=== PATIENT | female | born 1975 | race Caucasian/White ===

== ENCOUNTER 2018-09-24 13:48 | Emergency (ER) | payer BC, OTHER ==
[~2018-09-24] VITALS: Ht 170.2 cm; Wt 86.2 kg
[~2018-09-24 13:48] MED LIST: ATIVAN0.5 M1 PO; CEFPODOXIME PR200 M1 PO; LEXAPRO 10 MG T10 M1 PO; LISINOPRIL10 MG PO; LUNESTA2 MG PO; PERCOCET 5-3251 EACH PO; VYVANSE50 MG PO
[2018-09-24] MEDS ORDERED: EFFIENT10 MG PO (13:54)
[2018-09-24] MEDS ORDERED: EFFEXOR XR75 MG PO (13:54)
[2018-09-24] MEDS ORDERED: VYVANSE70 MG PO (13:58)
[2018-09-24] MEDS ORDERED: PROPRANOLOL 1010 MG PO (13:59)
[2018-09-24] MEDS ORDERED: NORCO 5-325 TA1 EAC1 PO (15:03)
[2018-09-24] MEDS ORDERED: NAPROSYN500 MG PO (15:03)
[2018-09-24 15:18] VITALS: BP 126/85
== END 2018-09-24 15:19 | disposition home or self-care (01) ==
LOC: M.ERS 13:48
DX: S22.42XA Multiple fractures of ribs, left side, initial encounter for closed fracture (principal); I10 Essential (primary) hypertension; F32.9 Major depressive disorder, single episode, unspecified; Z90.49 Acquired absence of other specified parts of digestive tract; W00.0XXA Fall on same level due to ice and snow, initial encounter; Y93.89 Activity, other specified; Y92.89 Other specified places as the place of occurrence of the external cause; Y99.8 Other external cause status

== ENCOUNTER 2021-03-26 06:02 | Emergency (ER) | payer OTHER ==
[~2021-03-26] VITALS: Ht 167.6 cm; Wt 88.5 kg
[~2021-03-26 06:02] MED LIST changes: +EFFEXOR XR75 MG PO; +EFFIENT10 MG PO; +NAPROSYN500 MG PO; +NORCO 5-325 TA1 EAC1 PO; +PROPRANOLOL 1010 MG PO; +VYVANSE70 MG PO
[2021-03-26 06:36] LABS: ABSOLUTE BASOPHILS 0.1 thou/uL (0.0-0.2); ABSOLUTE EOSINOPHILS 0.1 thou/uL (0.0-0.7); ABSOLUTE LYMPHOCYTES 3.6 thou/uL (0.8-5.3); ABSOLUTE MONOCYTES 0.7 thou/uL (0.0-1.2); ABSOLUTE NEUTROPHILS 6.2 thou/uL (1.6-8.1); BASOPHILS 0.8 %; EOSINOPHILS 1.1 %; HEMATOCRIT 46.5 % (37.0-47.0); LYMPHOCYTES 33.6 %; MCH 31.4 pg (26.0-34.0); MCHC 34.4 g/dL (28.0-37.0); MCV 91.1 fL (80.0-100.0); MONOCYTES 6.5 %; MPV 7.8 fl. (7.2-11.1); NUCLEATED RBCS 0 /100WBC; PLATELET COUNT* 299 thou/uL (150-400); RDW-CV 14.5 % (10.5-14.5); WBC 10.7 thou/uL (4.0-11.0)
[2021-03-26 06:59] LABS: ALBUMIN 4.1 g/dL (3.4-5.0); TOTAL BILIRUBIN 0.5 mg/dL (<0.1-1.0); TOTAL PROTEIN 8.8 g/dL (6.4-8.2)
[2021-03-26 07:52] VITALS: BP 126/80
--- NOTE | 2021-03-26 13:54 | EKG ---
[place] [address] ELECTROCARDIOGRAM REPORT Name: HARI LEBRON Room: [facility]#: [id number] Admission: 03/26/21 Attend Phys: Discharge: 03/26/21 Date of : 71 Date of Service: 03/26/21606 Report #: [id number] THIS REPORT FOR: //name// [facility] ED Test Date: 2021-03-26 Test Time: 06:07:45 Pat Name: HARI LEBRON Department: Room: Gender: F [employer]: [place] : 1975 Requested By: Ana M Lanza Order Number: [id number] MD: Filiberto Gorman Measurements Intervals [place] Rate: 84 P: 59 IN: 179 QRS: -4 QRSD: 78 T: 15 QT: 351 QTc: 415 Interpretive Statements Sinus rhythm septal q waves LAE, consider biatrial enlargement Baseline wander in lead(s) V6 Compared to ECG 12/23/2014 18:58:39 T-wave abnormality no longer present Electronically Signed On 03-26-2021 13:54:08 CDT by Filiberto Gorman [email or web address] <ELECTRONICALLY SIGNED> By: Filiberto Gorman MD, FAC 03/26/21 [id number] Filiberto Gorman MD, FAC /EPI
== END 2021-03-26 07:55 | disposition home or self-care (01) ==
LOC: M.ERS 06:02
PROVIDERS: Personal Emergency Response Attendant
DX: R00.2 Palpitations (principal); Z20.822 Contact with and (suspected) exposure to COVID-19; F41.9 Anxiety disorder, unspecified; R06.4 Hyperventilation; I10 Essential (primary) hypertension; Z79.899 Other long term (current) drug therapy